=== PATIENT | male | born 1975 | race African-American/Black ===

== ENCOUNTER 2019-09-28 05:16 | Emergency (ER) | payer OTHER ==
[~2019-09-28] VITALS: Ht 177.8 cm; Wt 71.2 kg
[2019-09-28] MEDS ORDERED: SULFAMETH/TRIMETH 800/160 MG TABLET PO ONE (06:00)
[2019-09-28] MEDS ORDERED: SULFAMETH/TRIMETH 800/160 MG TABLET ONE (06:05)
[2019-09-28 06:21] VITALS: BP 132/81
== END 2019-09-28 06:07 | disposition home or self-care (01) ==
LOC: ER 05:19
DX: R20.2 Paresthesia of skin (principal); R06.00 Dyspnea, unspecified; F17.210 Nicotine dependence, cigarettes, uncomplicated; J45.909 Unspecified asthma, uncomplicated; F31.9 Bipolar disorder, unspecified
CPT/HCPCS: 71045; A4663

== ENCOUNTER 2023-01-12 07:24 | Emergency (ER) | payer MEDICAID, OTHER ==
[~2023-01-12] VITALS: Ht 177.8 cm; Wt 74.8 kg
[2023-01-12] MEDS ORDERED: HYDROCODONE/APAP 5-325MG TABLET PO ONE (08:15)
[2023-01-12] MEDS ORDERED: CLINDAMYCIN PHOSPHATE IV 600 MG in IV DEXTROSE 5% 100 ML IV ONE (08:15)
[2023-01-12] MEDS ORDERED: HYDROCODONE/APAP 5-325MG TABLET ONE (08:19)
[2023-01-12] MEDS ORDERED: CLINDAMYCIN 600 MG PIGGYBACK**ER OMNI IV ONE (08:19)
[2023-01-12 08:26] LABS: BASOPHILS % (AUTO) 1.1 % (0.0-2.0); EOSINOPHILS # (AUTO) 0.2 K/uL (0.0-0.7); EOSINOPHILS % (AUTO) 5.8 % (0.0-7.0); HEMATOCRIT 39.5 % (36.7-47.1); LYMPHOCYTES # (AUTO) 1.3 K/uL (0.8-4.8); LYMPHOCYTES % (AUTO) 32.3 % (20.5-51.5); MEAN CORPUSCULAR HEMOGLOBIN 25.6 uug (23.8-33.4); MEAN CORPUSCULAR HGB CONC 33 g/dL (32.5-36.3); MEAN CORPUSCULAR VOLUME 78.1 fL (73.0-96.2); MONOCYTES # (AUTO) 0.5 K/uL (0.1-1.30); MONOCYTES % (AUTO) 11.6 % (0.0-11.0); NEUTROPHILS # (AUTO) 1.9 K/uL (1.8-8.9); NEUTROPHILS % (AUTO) 49.2 % (38.5-71.5); PLATELET COUNT (AUTO) 294 K/uL (152-348); RED BLOOD CELL COUNT(AUTO) 5.06 MIL/uL (4.06-5.63); RED CELL DISTRIBUTION WIDTH 14.2 % (12.1-16.2); WHITE BLOOD COUNT (AUTO) 3.9 K/uL (3.6-10.2)
[2023-01-12 08:27] LABS: DIFFERENTIAL COMMENT 1
[2023-01-12] MEDS ORDERED: IOHEXOL 300MG/ML 100 ML INFUS..BTL ONE (08:32)
[2023-01-12] MEDS ORDERED: SWABABLE VALVE TRANSFER SET EA MC ONE (08:32)
[2023-01-12] MEDS ORDERED: IV NORMAL SALINE 250 ML IV ONE (08:32)
[2023-01-12 08:41] LABS: ALBUMIN 4.1 g/dL (3.4-5.0); BILIRUBIN,TOTAL 0.3 mg/dL (0.2-1.0); CALCIUM 9.1 mg/dL (8.5-10.1); CREATININE 0.9 mg/dL (0.6-1.3); POTASSIUM 4.2 mmol/L (3.5-5.1); TOTAL PROTEIN, SERUM 7.8 g/dL (6.4-8.2)
[2023-01-12] MEDS ORDERED: CLIN-118 PO (10:14)
[2023-01-12 10:28] VITALS: BP 117/71; O2SAT 97
== END 2023-01-12 10:29 | disposition home or self-care (01) ==
LOC: ER 07:24
DX: L03.211 Cellulitis of face (principal); J45.909 Unspecified asthma, uncomplicated; F17.210 Nicotine dependence, cigarettes, uncomplicated; Z79.2 Long term (current) use of antibiotics
CPT/HCPCS: 99285; 96365; 70487; 80053; 85025; 87040; 36415; 83605; J3490 ×2; Q9967; A4606; A4663

== ENCOUNTER 2023-04-03 10:32 | Emergency (ER) | payer OTHER ==
[~2023-04-03] VITALS: Ht 177.8 cm; Wt 74.8 kg
[~2023-04-03 10:32] MED LIST: CLIN-118 PO
[2023-04-03] MEDS ORDERED: CEPH500C2 PO (12:13)
[2023-04-03] MEDS ORDERED: SULF1TAB48 PO (12:13)
[2023-04-03] MEDS ORDERED: MUPI22OI2 TP (12:13)
[2023-04-03 13:23] VITALS: BP 122/88; TEMP 98; O2SAT 99
== END 2023-04-03 13:24 | disposition home or self-care (01) ==
LOC: ER 10:32
DX: L03.211 Cellulitis of face (principal); J45.909 Unspecified asthma, uncomplicated; F31.9 Bipolar disorder, unspecified; F17.200 Nicotine dependence, unspecified, uncomplicated; Z79.899 Other long term (current) drug therapy
CPT/HCPCS: A4606; A4663

== ENCOUNTER 2023-07-07 04:12 | Emergency (ER) | payer OTHER ==
[~2023-07-07] VITALS: Ht 177.8 cm; Wt 74.8 kg
[~2023-07-07 04:12] MED LIST changes: +CEPH500C2 PO; +MUPI22OI2 TP; +SULF1TAB48 PO
[2023-07-07 05:00] VITALS: BP 128/82; TEMP 97.9; O2SAT 99
== END 2023-07-07 05:01 | disposition home or self-care (01) ==
LOC: ER 04:17
DX: F45.8 Other somatoform disorders (principal); J45.909 Unspecified asthma, uncomplicated; F31.9 Bipolar disorder, unspecified; F17.210 Nicotine dependence, cigarettes, uncomplicated; Z98.890 Other specified postprocedural states; Z79.899 Other long term (current) drug therapy
CPT/HCPCS: A4606; A4663